=== PATIENT | male | born 1995 | race Caucasian/White ===

== ENCOUNTER 2022-06-01 11:09 | Emergency (ER) | payer BC, SELFPAY ==
[2022-06-01 11:20] VITALS: BP 160/93; PULSE 85; RESP 18; TEMP 36.7; O2SAT 100
--- NOTE | 2022-06-01 11:27 | ED.URI ---
HPI - URI/Sore Throat General Chief Complaint: Upper Respiratory Infection Stated Complaint: Sore Throat Time Seen by Provider: 06/01/22 11:27 History of Present Illness HPI Narrative: 26 y/o male presented for c/o sore throat, onset last night. Denies any associated symptoms. Denies sick contacts. Took cough drops for symptoms. Related Data Allergies Allergy/AdvReac Type Severity Reaction Status Date / Time nut - unspecified AdvReac Vomiting Verified 06/01/22 11:19 Review of Systems Review of Systems: CONSTITUTIONAL: Denies body aches, fever, chills, or sweats. EYES: Denies visual changes, redness, or discharge. ENT: Denies rhinorrhea, congestion, or otalgia. CARDIOVASCULAR: Denies chest pain, palpitations, or edema. RESPIRATORY: Denies dyspnea. GASTROINTESTINAL: Denies abdominal pain, nausea, vomiting, or diarrhea. SKIN: Denies rash, itching, or wounds. MUSCULOSKELETAL: Denies back pain, joint pain, or myalgia. NEUROLOGIC: Denies headache PMF Past Medical History Medical History (Updated 06/01/22 @ 11:38 by Whitney Phoenix, COMB[employer] MECH[employer]IC) No pertinent past medical history Exam Narrative: GENERAL: well-appearing, no acute distress. EYES: conjunctivae clear ENT: Mucous membranes moist. TMs pearly parrish with normal light reflex bilaterally; no tragal tenderness. Oropharynx erythematous. Tonsils not enlarged and without exudate. No drooling, no hoarseness, no trismus, uvula midline. No tripod positioning, hot potato voice, or soft palate swelling. NECK: Supple. No lymphadenopathy CHEST: Clear to auscultation, breath sounds equal. HEART: Regular rate and rhythm. No murmur heard. SKIN: Warm, dry, no rash. NEURO: Alert and oriented x3. Course Course Emergency Course: Patient is aware of diagnosis, understands and agrees to treatment plan. Anticipatory guidance given. Patient agrees to follow-up as directed and is aware of reasons to seek care at the emergency department. Portions of this record may have been created with voice recognition software Level of Care: Express Care Visit Vital Signs Vital signs: Vital Signs Temperature 98.1 F 06/01/22 11:20 Pulse Rate 85 06/01/22 11:20 Respiratory Rate 18 06/01/22 11:20 Blood Pressure 160/93 H 06/01/22 11:20 Pulse Oximetry 100 06/01/22 11:20 Oxygen Delivery Room Air 06/01/22 11:20 Temperature 98.1 F 06/01/22 11:20 Pulse Rate 85 06/01/22 11:20 Respiratory Rate 18 06/01/22 11:20 Blood Pressure 160/93 H 06/01/22 11:20 Pulse Oximetry 100 06/01/22 11:20 Oxygen Delivery Room Air 06/01/22 11:20 MDM - URI/Sore Throat MDM Narrative Medical decision making narrative: strep result reviewed with pt. Advise supportive treatments. Patient is appropriate for outpatient treatment and follow-up. Differential Diagnosis Differential diagnosis: Likely upper respiratory infection, viral infection and pharyngitis Lab Data Labs: Strep Screen Positive Group A Strep *(Reference Range: Negative)* Discharge Plan Discharge Clinical Impression: Strep pharyngitis Patient Disposition: Home, Self-Care Condition: Stable Instructions: Antibiotic Form, Strep Throat (ED) Additional Instructions: - Take the antibiotic as directed. Fever and sore throat typically resolve within one to three days. --- Most patients can return to work after 12 to 24 hours of antibiotic therapy, provided you are fever free and otherwise well. -Eat and drink things that are easy to swallow, like soft foods, cool liquids, tea with honey, or popsicles . -Salt water gargles and/or may use topical anesthetic ( Chloraseptic spray) or lozenges to relieve dryness or throat pain -Alternate Tylenol and ibuprofen as needed for pain and fever as directed. -Frequent hand washing or hand refrigeration supervisor is one of the best ways to prevent spread of infection. Throw away the toothbrush after 24hours of antibi
--- NOTE | 2022-06-01 12:31 | PC.NURSE ---
1158- Pt stated [facility] called and told him they do not accept his insurance. Rx called [facility].
== END 2022-06-01 11:58 | disposition home or self-care (01) ==
PROVIDERS: Emergency Provider Nurse Practitioner Family
DX: J02.0 Streptococcal pharyngitis (principal)
CPT/HCPCS: 87880; 99203; G0463

== ENCOUNTER 2022-09-04 10:34 | Emergency (ER) | payer BC, SELFPAY ==
--- NOTE | 2022-09-04 10:37 | ED.URI ---
HPI - URI/Sore Throat General Chief Complaint: Upper Respiratory Infection Stated Complaint: Sore throat Time Seen by Provider: 09/04/22 10:37 Source: patient Mode of arrival: ambulatory Limitations: no limitations History of Present Illness HPI Narrative: States he is a 27-year-old male patient presenting to the clinic today with complaints of a sore throat x1 day. He reports symptoms began yesterday afternoon. He denies any known fever or chills. Does have some nasal congestion with the sore throat. States that he had a strep infection back in May and it felt similar to this instance. MD elicited complaint: sore throat and nasal congestion Related Data Allergies Allergy/AdvReac Type Severity Reaction Status Date / Time nut - unspecified AdvReac Intermediate Vomiting Verified 09/04/22 10:48 Review of Systems Review of Systems: Pertinent positives per HPI. Patient denies any fever, chills, rash, headache, visual changes, dizziness, cough, shortness of breath, chest pain, palpitations, nausea, vomiting, diarrhea, constipation, abdominal pain, or any urinary issues. PMFSH Past Medical History Medical History No pertinent past medical history Comments At the time of my signature, I reviewed and agree with the nursing past medical, surgical, social, and family history. There is no relevant family history pertinent to the patient complaint. Exam Narrative: General: Well-developed, well nourished, in no apparent distress Head: Normocephalic, atraumatic Eyes: Pupils equally round and reactive to light bilaterally, EOM intact, sclera and conjunctive clear, no discharge, lids normal Ears: TMs intact and clear, ear canals clear, no drainage, grossly hearing normal. Nose: Nares patent, no discharge, no inflammation, no sinus tenderness. Mouth: Oral pharynx red with mild bilateral tonsillar enlargement without lesions or masses, good dentition, MMM. Neck: Supple, trachea midline, no enlargement of anterior or posterior cervical nodes, no thyroid masses or goiter palpable. Cardio: Regular rate and rhythm, s1 and s2 normal, no murmur appreciated. Resp: Clear to auscultation bilaterally, no rhonchi, rales, wheezing or rubs Course Course Emergency Course: Portions of this record may have been created with voice recognition software. Level of Care: Express Care Visit Vital Signs Vital signs: Vital signs reviewed MDM - URI/Sore Throat MDM Narrative Medical decision making narrative: At the time of visit patient is resting comfortably on the exam table. Strep screen was obtained and was negative. We will send strep for culture. I suspect patient has URI/pharyngitis. Supportive measures were discussed with the patient he voiced understanding discharge instructions and agrees to treatment plan. Differential Diagnosis Differential diagnosis: Likely upper respiratory infection, sinusitis, viral infection, bronchitis, influenza, pharyngitis and other (COVID) Discharge Plan Discharge Clinical Impression: Upper respiratory infection, Pharyngitis Patient Disposition: Home, Self-Care Condition: Stable Instructions: Antibiotic Form, Pharyngitis (ED), Upper Respiratory Infection (ED) Additional Instructions: Strep screen was negative in the clinic today. We will send for culture if this comes back positive we will contact him place you on antibiotics at that time. Increase fluids and stay well hydrated Tylenol/motrin for pain/fever Flonase and OTC antihistamines as directed Vicks vapor rub to open sinuses Sinus rinses for congestion Cepacol spray, cough drops, throat lozenges, warm tea with honey/lemon, gargle salt water to soothe throat BRAT diet for diarrhea Clear liquids x 24 hours then advance as tolerated for nausea/vomiting Go to the ED if you develop a worsening in your condition- high fever not controlled by Tylenol or
[2022-09-04 10:40] VITALS: BP 142/88; PULSE 83; RESP 18; TEMP 36.8; O2SAT 100
== END 2022-09-04 11:03 | disposition home or self-care (01) ==
PROVIDERS: Emergency Provider Nurse Practitioner Family
DX: J06.9 Acute upper respiratory infection, unspecified (principal); J02.9 Acute pharyngitis, unspecified
CPT/HCPCS: 87081; 87880; 99213; G0463

== ENCOUNTER 2023-07-19 10:14 | Emergency (ER) | payer BC, SELFPAY ==
[2023-07-19 10:42] VITALS: BP 156/100; PULSE 82; RESP 18; TEMP 36.3; O2SAT 100
[2023-07-19 10:44] VITALS: BP 143/100
--- NOTE | 2023-07-19 10:47 | ED.URI ---
HPI - URI/Sore Throat General Chief Complaint: Upper Respiratory Infection Stated Complaint: sore throat Time Seen by Provider: 07/19/23 10:41 Source: patient and RN notes reviewed Mode of arrival: ambulatory Limitations: no limitations History of Present Illness HPI Narrative: Patient presents today with sore throat since yesterday. Denies any additional symptoms to include congestion, rhinorrhea, cough, fever. Currently rates his pain 4/10 and has been using cough drops without relief. Denies any known sick contacts. Related Data Home Medications Medication Instructions Recorded Confirmed No Home Medications 07/19/23 07/19/23 Allergies Allergy/AdvReac Type Severity Reaction Status Date / Time nut - unspecified AdvReac Intermediate Vomiting Verified 07/19/23 10:27 Review of Systems Review of Systems: CONSTITUTIONAL: Denies body aches, fever, chills, or sweats. EYES: Denies visual changes, redness, or discharge. ENT: Denies rhinorrhea, congestion, or otalgia.+ sore throat CARDIOVASCULAR: Denies chest pain, palpitations, or edema. RESPIRATORY: Denies cough or dyspnea. GASTROINTESTINAL: Denies abdominal pain, nausea, vomiting, or diarrhea. GENITOURINARY: Denies dysuria or hematuria. SKIN: Denies rash, itching, or wounds. MUSCULOSKELETAL: Denies back pain, joint pain, or myalgia. NEUROLOGIC: Denies headache, numbness, tingling, or weakness. PSYCH: Denies depression or anxiety. [facility] Past Medical History Medical History No pertinent past medical history Comments At time of signature, I have reviewed and agree with nursing past medical, surgical, social and family history unless otherwise noted. Please see nursing chart for further information. There is no relevant family history pertinent to the presenting complaint Exam Narrative: GENERAL: Well-appearing, well-nourished, and in no acute distress. HEAD: Normocephalic, atraumatic. EYES: EOMI. No redness or drainage. Conjunctivae normal. ENT: Mucous membranes pink and moist. Nares clear. No rhinorrhea. TMs normal bilaterally. Uvula midline.+ throat is erythematous with mild edema. No exudate NECK: Normal AROM. Supple. No lymphadenopathy. CHEST: No respiratory distress. Clear to auscultation. HEART: Regular rate and rhythm. No murmur appreciated. EXTREMITIES: Normal range of motion. No edema. SKIN: Warm, dry, no rash. Capillary refill normal. Normal skin turgor. NEURO: No focal deficits. Alert and oriented x3. Gait steady. PSYCH: Normal affect. No signs of depression or anxiety. Course Course Level of Care: Express Care Visit Vital Signs Vital signs: Vital Signs Temperature 97.3 F L 07/19/23 10:42 Pulse Rate 82 07/19/23 10:42 Respiratory Rate 18 07/19/23 10:42 Blood Pressure 156/100 H 07/19/23 10:42 Pulse Oximetry 100 07/19/23 10:42 Oxygen Delivery Room Air 07/19/23 10:42 Temperature 97.3 F L 07/19/23 10:42 Pulse Rate 82 07/19/23 10:42 Respiratory Rate 18 07/19/23 10:42 Blood Pressure 143/100 H 07/19/23 10:44 Pulse Oximetry 100 07/19/23 10:42 Oxygen Delivery Room Air 07/19/23 10:42 Reviewed MDM - URI/Sore Throat MDM Narrative Medical decision making narrative: Rapid strep negative. Culture pending. Symptoms likely viral in etiology. Discussed pyet-dca-eysolet medication use and duration of illness. Anticipatory guidance given. Differential Diagnosis Differential diagnosis: Likely upper respiratory infection, viral infection, pharyngitis and other (Strep throat) Lab Data Attestation: I reviewed the patient's lab results. Labs: Strep Screen Presumptive Negative *(Reference Range: Negative)* Critical Care Time Critical Care Time Critical Care Time: No Discharge Plan Discharge Clinical Impression: Pharyngitis Qualifiers: Pharyngitis/tonsillitis etiol
== END 2023-07-19 10:53 | disposition home or self-care (01) ==
PROVIDERS: Emergency Provider Nurse Practitioner
DX: J02.9 Acute pharyngitis, unspecified (principal); Z86.16 Personal history of COVID-19
CPT/HCPCS: 87081; 87880; 99213; G0463

== ENCOUNTER 2023-10-21 08:40 | Emergency (ER) | payer BC, SELFPAY ==
[2023-10-21 08:53] VITALS: BP 163/83; PULSE 88; RESP 16; TEMP 36.5; O2SAT 100
--- NOTE | 2023-10-21 08:56 | ED.SKABFB ---
HPI - Skin/Abscess/Foreign Bdy General Chief complaint: Skin/Abscess/Foreign Body Stated complaint: wasp sting ( lt thumb) Time Seen by Provider: 10/21/23 08:58 Source: patient, RN notes reviewed and old records reviewed Mode of arrival: ambulatory Limitations: no limitations History of Present Illness HPI narrative: Patient presents with complaints of pain and swelling to left hand after being stung by a wasp 4 days ago. He reports that he was stung 1 time at the base of the thumb. He did wash the site immediately. Has been taking Tylenol since the time of the injury. Began taking Benadryl last night when the swelling was increased. He reports no relief. This morning he noted that swelling was extending up the left forearm, approximately fdc. He is right-hand dominant, does retain full range of motion to the left hand and wrist. No drainage from the site. No constitutional symptoms. Related Data Allergies Allergy/AdvReac Type Severity Reaction Status Date / Time nut - unspecified AdvReac Intermediate Vomiting Verified 10/21/23 08:45 Review of Systems Review of Systems: All systems reviewed & are unremarkable except as noted in HPI and below Constitutional: Constitutional: Reports no additional constitutional complaints ENT: Reports system reviewed and no additional complaints, except as documented Cardiovascular: Cardiovascular: Reports no additional cardiovascular complaints Respiratory: Respiratory: Reports no additional respiratory complaints Gastrointestinal: Gastrointestinal: Reports no additional gastrointestinal complaints Musculoskeletal: Musculoskeletal: Reports as per HPI Integumentary/Breasts: Skin/Breast: Reports as per HPI and Reports erythema PMFSH Past Medical History Medical History No pertinent past medical history Comments At the time of my signature, I reviewed and agree with the nursing past medical, surgical, social, and family history. There is no relevant family history pertinent to the patient complaint. Exam Const: General: cooperative, no acute distress, alert and awake Orientation/consciousness: oriented to person, oriented to place and oriented to time HENMT: Head: normal to inspection Resp: Effort & Inspection: normal respiratory effort and able to speak in complete sentences Auscultation: clear to auscultation bilaterally, no crackles, no rales, no rhonchi and no wheezes Cardio: Palpation: normal PMI Rate: regular rate Rhythm: regular rhythm Heart sounds: S1 normal heart sound present and S2 normal heart sound present Skin: Other: At the base of the left thumb there is a pinhole size opening, presumably from where he was stung by a wasp. There is erythema swelling, calor to the left hand extending midway up the forearm. There is no drainage. Cap refill less than 2 seconds. Full range of motion to all joints in affected area. No defined abscess Neuro: General: oriented to person, oriented to place and oriented to time Cranial nerves: Yes CN's II-XII intact bilaterally Psych: Appearance: grossly normal Thought process: Normal thought process present Insight: Good insight present (Psych) Judgement: Good judgement present (Psych) Course Course Level of Care: Express Care Visit Vital Signs Vital signs: Vital Signs Temperature 97.7 F 10/21/23 08:53 Pulse Rate 88 10/21/23 08:53 Respiratory Rate 16 10/21/23 08:53 Blood Pressure 163/83 H 10/21/23 08:53 Pulse Oximetry 100 10/21/23 08:53 Oxygen Delivery Room Air 10/21/23 08:53 Temperature 97.7 F 10/21/23 08:53 Pulse Rate 88 10/21/23 08:53 Respiratory Rate 16 10/21/23 08:53 Blood Pressure 163/83 H 10/21/23 08:53 Pulse Oximetry 100 10/21/23 08:53 Oxygen Delivery Room Air 10/21/23 08:53 Reviewed MDM - Skin/Abscess/Foreign Bdy MDM Narrative Medical decision making narrative: patient with increasing sue
== END 2023-10-21 09:33 | disposition home or self-care (01) ==
PROVIDERS: Emergency Provider Nurse Practitioner Family
DX: L03.114 Cellulitis of left upper limb (principal)
CPT/HCPCS: 99213; G0463

== ENCOUNTER 2024-06-04 16:44 | Emergency (ER) | payer BC, SELFPAY ==
[2024-06-04 16:53] VITALS: BP 161/97; PULSE 82; RESP 18; TEMP 36.3; O2SAT 100
[2024-06-04 18:04] LABS: EDCOVIDSCREEN Negative (Negative); EDINFLUASCREEN Negative (Negative); EDINFLUBSCREEN Negative (Negative)
--- NOTE | 2024-06-04 18:06 | ED_ITS ---
HPI - General Adult General Chief complaint: Upper Respiratory Infection Stated complaint: fever Source: patient Mode of arrival: ambulatory Limitations: no limitations History of Present Illness HPI narrative: Patient presents for evaluation of intermittent fever for the last 2 days. T- max at home 102.3. He has taken Tylenol and aspirin both of which have helped his symptoms. He denies any chills, nausea, vomiting, abdominal pain, constipation, diarrhea, urinary symptoms, urethral discharge, cough, shortness of breath, otalgia, sore throat, skin abnormalities or any other infectious symptoms whatsoever. One of his coworkers recently had a respiratory infection. Patient came in today at the suggestion of his . He states he feels perfectly fine other than the intermittent fever. No recent TB exposure. No recent vaccines received. No out of country travel. Related Data Allergies Allergy/AdvReac Type Severity Reaction Status Date / Time nut - unspecified AdvReac Intermediate Vomiting Verified 06/04/24 16:56 Review of Systems Review of Systems: CONSTITUTIONAL: Reports intermittent fever. Denies chills or sweats. EYES: Denies visual changes, redness, or discharge. ENT: Denies rhinorrhea, congestion, sore throat, or otalgia. CARDIOVASCULAR: Denies chest pain, palpitations, or edema. RESPIRATORY: Denies cough or dyspnea. GASTROINTESTINAL: Denies abdominal pain, nausea, vomiting, or diarrhea. GENITOURINARY: Denies dysuria or hematuria. SKIN: Denies rash or itching. MUSCULOSKELETAL: Denies back pain, joint pain, or myalgia. NEUROLOGIC: Denies headache, numbness, dizziness, or weakness. PSYCHIATRIC: Denies anxiety or depression. [facility] Past Medical History Medical History Hypertension Surgical History Surgical History No pertinent past surgical history Family History Family History Mother Family history non-contributory Social History Social History Substance use: never Living arrangements: with family Gender identity (if verbalized by the patient): Male Sexual Orientation (if Verbalized by the Patient): Straight or Heterosexual Spiritual care concerns: No Exam Narrative: GENERAL: Well-appearing, well-nourished, and in no acute distress. HEAD: Normocephalic, atraumatic. EYES: PERRLA and EOMI. ENT: Nares clear, no rhinorrhea or epistaxis. Mucous membranes moist. Oropharynx without tonsillar hypertrophy exudate or other lesions. Bilateral TMs pearly parrish nonbulging NECK: Supple. No adenopathy or masses. No carotid bruits or JVD CHEST: Clear to auscultation. No respiratory distress. No wheezes rales or rhonchi HEART: Regular rate and rhythm. No murmur heard. Normal peripheral pulses. ABDOMEN: Soft, nontender, nondistended, normal active bowel sounds. EXTREMITIES: Normal range of motion. No edema. SKIN: Warm, dry, no rash. NEURO: No focal deficits. Alert and oriented x3. PSYCH: Normal mood and affect. Course Course Emergency Course: this is a 28-year-old male who presented for evaluation of fever. I cannot identify any infectious source on his exam. I do not appreciate any wounds. He has no sore throat, otalgia, cough, shortness of breath, abdominal pain, nausea, vomiting, diarrhea, urethral discharge, or urinary symptoms. He had a negative COVID and flu test here. I did offer to check him for strep, and to also have a chest x-ray and urinalysis performed. He declined. I think this is reasonable. He has no lymphadenopathy and exam. He seems very reasonable and has good judgment from my interaction with him today. In the event that he has recurrent or worsening symptoms he will go to the emergency department. Patient in agreement with plan of care. Level of Care: Express Care Visit Vital Signs Vital signs: Vital Signs Temperature 36.3 C L 06/04/24 16:53 Pulse Rate 82 06/04/24 16:53 Respiratory Rate 18 06/04/24 16:53 Blood Pressure 161/97 H 06/04/24 16:53 Pulse Oximetry 100 06/04/24 16:53 Temperature 36.3 C L 06/04/24 16:53 Pulse Rate 82 06/04/24 16:53 Respiratory Rate 18 06/04/24 16:53 Blood Pressure 161/97 H 06/04/24 16:53 Pulse Oximetry 100 06/04/24 16:53 Medical Decision Making Vital Signs Vital Signs: Vital Signs Temperature 36.3 C L 06/04/24 16:53 Pulse Rate 82 06/04/24 16:53 Respiratory Rate 18 06/04/24 16:53 Blood Pressure 161/97 H 06/04/24 16:53 Pulse Oximetry 100 06/04/24 16:53 Temperature 36.3 C L 06/04/24 16:53 Pulse Rate 82 06/04/24 16:53 Respiratory Rate 18 06/04/24 16:53 Blood Pressure 161/97 H 06/04/24 16:53 Pulse Oximetry 100 06/04/24 16:53 Lab Data Labs: Lab Results 06/04/24 Range/Units 18:03 POC Influenza A Ag Negative (Negative) POC Influenza B Ag Negative (Negative) POC SARS CoV-2 Ag Negative (Negative) Discharge Plan Discharge Clinical Impression: Fever Patient Disposition: Home, Self-Care Condition: Stable Instructions: Antibiotic Form, Fever in Adults (ED) Additional Instructions: If you have persistent or worsening symptoms, please return or go to the ER You may alternate tylenol and ibuprofen for fever Make sure to stay well hydrated. Patient Language: Jordanian Prescriptions: No Action sulfamethoxazole-trimethoprim [Bactrim DS] 800-160 mg tablet 1 tablet PO Q12H Qty: 20 0RF prednisone 50 mg tablet 50 mg PO DAILY Qty: 5 0RF Follow-up/Referrals: Abhishek Kinsey MD [Physician] - Time of Disposition: 18:03
== END 2024-06-04 18:06 | disposition home or self-care (01) ==
PROVIDERS: Emergency Provider Nurse Practitioner
DX: R50.9 Fever, unspecified (principal); Z20.822 Contact with and (suspected) exposure to COVID-19; I10 Essential (primary) hypertension
CPT/HCPCS: 87426; 87804; 99212; G0463

== ENCOUNTER 2025-01-07 09:11 | Emergency (ER) | payer BC, SELFPAY ==
--- NOTE | 2025-01-07 09:13 | ED.SKABFB ---
HPI - Skin/Abscess/Foreign Bdy General Chief complaint: Skin/Abscess/Foreign Body Stated complaint: Cyst on Tailbone Time Seen by Provider: 01/07/25 09:13 Source: patient Mode of arrival: ambulatory Limitations: no limitations History of Present Illness HPI narrative: Bridget is 29-year-old male patient presenting to the clinic today with complaints of a cyst on his tailbone. He reports he had what started to feel like a pimple to his tailbone area that started a few days ago and has gradually gotten worse. Has taken Tylenol for his symptoms. Currently rates his pain at 3/10. Denies any fevers, chills, body aches. History of having cyst in this area in the past and it drained on its own. Related Data Allergies Allergy/AdvReac Type Severity Reaction Status Date / Time tree nut AdvReac Mild Nausea and Verified 01/07/25 09:50 Vomiting Review of Systems Review of Systems: Pertinent positives per HPI. Patient denies any fever, chills, rash, headache, visual changes, dizziness, cough, runny nose, sore throat, shortness of breath, chest pain, palpitations, nausea, vomiting, diarrhea, constipation, abdominal pain, or any urinary issues. PMFSH Past Medical History Medical History Hypertension Surgical History Surgical History No pertinent past surgical history Family History Family History Mother Family history non-contributory Social History Social History Smoking status: Never smoker Substance use: never Living arrangements: with family Gender identity (if verbalized by the patient): Male Sexual Orientation (if Verbalized by the Patient): Straight or Heterosexual Spiritual care concerns: No Comments At the time of my signature, I reviewed and agree with the nursing past medical, surgical, social, and family history. There is no relevant family history pertinent to the patient complaint. Exam Narrative: General: Well-developed, well nourished, in no apparent distress Head: Normocephalic, atraumatic. Cardio: Regular rate and rhythm, s1 and s2 normal, no murmur appreciated. Resp: Clear to auscultation bilaterally, no rhonchi, rales, wheezing or rubs. Integumentary: [place], warm, and dry, 3 x 3cm right gluteal cleft abscess with pustule head,induration, mild erythema, and mild fluctuation. No drainage. Course Course Emergency Course: Portions of this record may have been created with voice recognition software. Level of Care: Express Care Visit Vital Signs Vital signs: Vital Signs Temperature 36.1 C L 01/07/25 09:20 Pulse Rate 80 01/07/25 09:20 Respiratory Rate 18 01/07/25 09:20 Blood Pressure 150/90 H 01/07/25 09:20 Pulse Oximetry 100 01/07/25 09:20 Oxygen Delivery Room Air 01/07/25 09:20 Temperature 36.1 C L 01/07/25 09:20 Pulse Rate 80 01/07/25 09:20 Respiratory Rate 18 01/07/25 09:20 Blood Pressure 150/90 H 01/07/25 09:20 Pulse Oximetry 100 01/07/25 09:20 Oxygen Delivery Room Air 01/07/25 09:20 Vital signs reviewed Procedures Abscess I/D Right gluteal cleft abscess: Date of Incision: 01/07/25 Side (if applicable): right Sedation/analgesia: none Local Anesthetic: lidocaine 1% and with epi Amount of anesthesia used (mL): 1.5 Technique: incised with #11 blade Amount of fluid expressed (mL): 2 Irrigation: No Packing used?: iodoform I&D Results: Pus and Blood Complications: other (none) Abcess I&D Additional Comments: Verbal consent obtained for incision and drainage. Risk and benefits explained and patient voiced understanding. Area was cleansed with betadine. Area was prepped and draped using sterile technique. 27 gauge needle was then used to instill (1.5) ml of lidocaine with epi into the wound edges. Patient tolerated well and anesthesia was appropriate. An 11 blade scalpel was then used to make a 0.5cm incision over the abscess. White/brown bloody exudate expressed from cavity. Wound culture obtained and sent to lab. Patient tolerated procedure well. MDM - Skin/Abscess/Foreign Bdy MDM Narrative Medical decision making narrative: At the time of visit patient is resting comfortably on the exam table. Patient appears to be nontoxic. Complaints of a cyst on his tailbone. He reports he had what started to feel like a pimple to his tailbone area that started a few days ago and has gradually gotten worse. Has taken Tylenol for his symptoms. Currently rates his pain at 3/10. Denies any fevers, chills, body aches. History of having cyst in this area in the past and it drained on its own. On exam patient has 3 x 3cm right gluteal cleft abscess with pustule head,induration, mild erythema, and mild fluctuation. No drainage. Offered incision and drainage in patient agrees to procedure. Procedures: Incision and drainage of the right gluteal cleft abscess was performed in the clinic today. Risk and benefits were reviewed with the patient and verbal consent was obtained. Area was cleansed with Betadine and 1.5 mL of lidocaine with epi was instilled into the surrounding tissue. Eleven blade was used to incise the abscess. Approximately 2 mL of purulent discharge was expressed and wound culture was obtained and sent to the lab. Quarter-inch iodoform packing was inserted into the abscess bed. Sterile dressing was applied. Plan: Patient has a right gluteal cleft abscess. Wound culture was obtained and sent to lab. Quarter-inch iodoform packing was inserted into the abscess bed. Wound care was discussed with the patient. Follow-up in 2-3 days for packing removal and wound check. Prescription for Augmentin was sent to the pharmacy. Supportive measures were discussed with the patient and they voiced understanding discharge instructions and agrees to treatment plan. Return precautions reviewed Differential Diagnosis Differential diagnosis: Likely abscess of skin or subcutaneous tissue, cellulitis and other (Pilonidal cyst, gluteal cleft abscess) Discharge Plan Discharge Clinical Impression: Abscess of gluteal cleft Patient Disposition: Home Condition: Stable Instructions: Antibiotic Form, Abscess (ED), Abscess Incision and Drainage (DC) Additional Instructions: Incision and drainage performed in the clinic today Wound culture obtained and sent to the lab. Take Augmentin as prescribed Keep area clean and dry May shower daily- wash area with soap and water and pat dry Follow-up with your PCP or return to the clinic for a wound check/packing removal in 2-3 days Watch for signs and symptoms of worsening infection-fever, increase in redness, increase in swelling, increase in pain, increase in drainage, or streaking. Go to the emergency room for any worsening signs of infection, confusion, weakness, lethargy, dehydration, or other concerning symptoms. Patient Language: Romanian Prescriptions: New amoxicillin-pot clavulanate 875-125 mg tablet 1 tablet PO Q12H 7 Days Qty: 14 0RF No Action amlodipine-benazepril 5-20 mg capsule 1 cap PO DAILY Qty: 90 0RF Follow-up/Referrals: Marichuy Hong APRN [Primary Care Provider, Internal Medicine] Time of Disposition: 09:45 Quality NIHSS Nursing Documentation ED NIHSS nursing documentation: reviewed/agree
[2025-01-07 09:20] VITALS: BP 150/90; PULSE 80; RESP 18; TEMP 36.1; O2SAT 100
[2025-01-07] MEDS: LIDO 1%/EPINEPHRINE 1:100,000 20 ML VIAL 10 ML INFILTRATE (09:29)
== END 2025-01-07 09:48 | disposition home or self-care (01) ==
PROVIDERS: Emergency Provider Nurse Practitioner Family; PCP Nurse Practitioner Family
DX: L05.01 Pilonidal cyst with abscess (principal); I10 Essential (primary) hypertension
CPT/HCPCS: 10080; 87070; 87075; 87205; 99213; G0463; J2004

== ENCOUNTER 2025-01-09 13:14 | Emergency (ER) | payer BC, SELFPAY ==
--- NOTE | 2025-01-09 13:16 | ED_ITS ---
HPI - Wound/Laceration General Chief Complaint: Skin/Abscess/Foreign Body Stated Complaint: Abscess Time Seen by Provider: 01/09/25 13:15 Source: patient Mode of arrival: ambulatory Limitations: no limitations History of Present Illness HPI narrative: Bridget is a 29-year-old male patient presenting to the clinic today with complaints of a recheck of his right gluteal abscess. Patient was seen 2 days ago and had incision drainage of the right gluteal abscess. Was placed on Augmentin. Patient continues taking the medication. States the packing fell out when he was changing dressing/showering. Feels as though the abscess/symptoms have improved. Denies any fevers, chills, body aches. States that the area is still draining. Related Data Allergies Allergy/AdvReac Type Severity Reaction Status Date / Time tree nut AdvReac Mild Nausea and Verified 01/09/25 13:20 Vomiting Review of Systems 2 Review of Systems: Pertinent positives per HPI. Patient denies any fever, chills, rash, headache, visual changes, dizziness, cough, runny nose, sore throat, shortness of breath, chest pain, palpitations, nausea, vomiting, diarrhea, constipation, abdominal pain, or any urinary issues. PMFSH Past Medical History Medical History Hypertension Surgical History Surgical History No pertinent past surgical history Family History Family History Mother Family history non-contributory Social History Social History Smoking status: Never smoker Substance use: never Living arrangements: with family Gender identity (if verbalized by the patient): Male Sexual Orientation (if Verbalized by the Patient): Straight or Heterosexual Spiritual care concerns: No Comments At the time of my signature, I reviewed and agree with the nursing past medical, surgical, social, and family history. There is no relevant family history pertinent to the patient complaint. Exam Narrative: General: Well-developed, well nourished, in no apparent distress Head: Normocephalic, atraumatic. Cardio: Regular rate and rhythm, s1 and s2 normal, no murmur appreciated. Resp: Clear to auscultation bilaterally, no rhonchi, rales, wheezing or rubs. Integumentary: [place], warm, and dry, resolving abscess to right glute-induration has resolved and there is still some yellowish clear discharge draining from the wound. No erythema or redness visualized. Course Course Emergency Course: Portions of this record may have been created with voice recognition software. Level of Care: Express Care Visit Vital Signs Vital signs: Vital Signs Temperature 36.5 C 01/09/25 13:18 Pulse Rate 106 H 01/09/25 13:18 Respiratory Rate 18 01/09/25 13:18 Blood Pressure 151/94 H 01/09/25 13:18 Pulse Oximetry 100 01/09/25 13:18 Oxygen Delivery Room Air 01/09/25 13:18 Temperature 36.5 C 01/09/25 13:18 Pulse Rate 106 H 01/09/25 13:18 Respiratory Rate 18 01/09/25 13:18 Blood Pressure 151/94 H 01/09/25 13:18 Pulse Oximetry 100 01/09/25 13:18 Oxygen Delivery Room Air 01/09/25 13:18 Vital signs reviewed MDM - Wound/Laceration MDM Narrative Medical decision making narrative: At the time of visit patient is resting comfortably on the exam table. Patient appears to be nontoxic. Complaints of a recheck of his right gluteal abscess. Patient was seen 2 days ago and had incision drainage of the right gluteal abscess. Was placed on Augmentin. Patient continues taking the medication. S tates the packing fell out when he was changing dressing/showering. Feels as though the abscess/symptoms have improved. Denies any fevers, chills, body aches. States that the area is still draining. Plan: Patient has resolving right gluteal abscess. Still awaiting culture results. Continue Augmentin as prescribed and follow-up with PCP in 3-5 days if symptoms persist or go the emergency room if his symptoms worsen. Supportive measures were discussed with the patient and they voiced understanding discharge instructions and agrees to treatment plan. Return precautions reviewed Differential Diagnosis Differential diagnosis: Likely laceration, abscess, abrasion and avulsion of skin Discharge Plan Discharge Clinical Impression: Abscess, gluteal cleft Patient Disposition: Home Condition: Stable Instructions: Antibiotic Form, Abscess (ED), Abscess Follow-up (ED) Additional Instructions: Abscess is improving. Continue antibiotics as prescribed Wash daily with soap and water pat dry. Keep area covered if draining Watch for signs and symptoms of worsening infection-redness, swelling, increase in pain, increase in swelling, or fevers. Follow-up with your PCP in 3-5 days if symptoms persist or sooner if they worsen Patient Language: Wallisian Prescriptions: No Action amoxicillin-pot clavulanate 875-125 mg tablet 1 tablet PO Q12H 7 Days Qty: 14 0RF amlodipine-benazepril 5-20 mg capsule 1 cap PO DAILY Qty: 90 0RF Follow-up/Referrals: Marichuy Hong APRN [Primary Care Provider, Internal Medicine] Time of Disposition: 13:27 Quality NIHSS Nursing Documentation ED NIHSS nursing documentation: reviewed/agree
[2025-01-09 13:18] VITALS: BP 151/94; PULSE 106; RESP 18; TEMP 36.5; O2SAT 100
== END 2025-01-09 13:32 | disposition home or self-care (01) ==
PROVIDERS: Emergency Provider Nurse Practitioner Family; PCP Nurse Practitioner Family
DX: L05.01 Pilonidal cyst with abscess (principal); I10 Essential (primary) hypertension
CPT/HCPCS: 99211; G0463

== ENCOUNTER 2025-01-11 09:23 | Emergency (ER) | payer BC, SELFPAY ==
[2025-01-11 09:30] VITALS: BP 149/84; PULSE 82; RESP 16; TEMP 36.6; O2SAT 99
--- NOTE | 2025-01-11 09:30 | ED.SKABFB ---
HPI - Skin/Abscess/Foreign Bdy General Chief complaint: Skin/Abscess/Foreign Body Stated complaint: red line coming out of bump Time Seen by Provider: 01/11/25 09:30 Source: patient, RN notes reviewed and old records reviewed Mode of arrival: ambulatory Limitations: no limitations History of Present Illness HPI narrative: 29-year-old male returns to the [facility] to have an abscess checked. Was seen on January 07, 4 days ago, drained. Was checked on March 11, 2 days ago. Has an appointment with primary care tomorrow. Microbiology not fully back yet. Related Data Allergies Allergy/AdvReac Type Severity Reaction Status Date / Time tree nut AdvReac Mild Nausea and Verified 01/11/25 09:27 Vomiting Review of Systems Review of Systems: All systems reviewed & are unremarkable except as noted in HPI and below Constitutional: Constitutional: Reports no additional constitutional complaints Musculoskeletal: Musculoskeletal: Reports no additional musculoskeletal complaints Integumentary/Breasts: Skin/Breast: Reports as per HPI PMFSH Past Medical History Medical History Hypertension Surgical History Surgical History No pertinent past surgical history Family History Family History Mother Family history non-contributory Social History Social History Smoking status: Never smoker Substance use: never Living arrangements: with family Gender identity (if verbalized by the patient): Male Sexual Orientation (if Verbalized by the Patient): Straight or Heterosexual Spiritual care concerns: No Comments At the time of my signature, I reviewed and agree with the nursing past medical, surgical, social, and family history. There is no relevant family history pertinent to the patient complaint. Exam Const: General: cooperative, healthy appearing, comfortable, no acute distress, well developed, alert and well nourished Nutritional Appearance: well nourished Orientation/consciousness: patient oriented x3 Limitations: no limitations HENMT: Head: normal to inspection Eyes: General: appearance normal, both eyes and all related structures Alignment and Position: alignment normal Neck: Neck: normal visual inspection, full ROM, no lymphadenopathy and no meningeal signs Chest: Chest palpation & inspection: normal inspection of the chest Resp: Effort & Inspection: normal respiratory effort and able to speak in complete sentences Cardio: Rate: regular rate Skin: General skin exam: normal color and no rashes or lesions noted Full body images:  1. Well-healing flat without erythema wound. Neuro: General: patient oriented x3, gait normal, moves all extremities and no meningeal signs Cognition (Neuro): normal cognition Speech: normal speech Gait exam (Neuro): Normal gait present Extrem: General: normal to inspection, full ROM, capillary refill normal and normal gait Psych: Appearance: grossly normal and well kempt Mental Status: mental status grossly normal Speech and movement: Normal speech and movement present and Clear speech present Affect: normal affect Attitude: cooperative Course Course Level of Care: Express Care Visit Vital Signs Vital signs: Vital Signs Temperature 97.8 F 01/11/25 09:30 Pulse Rate 82 01/11/25 09:30 Respiratory Rate 16 01/11/25 09:30 Blood Pressure 149/84 H 01/11/25 09:30 Pulse Oximetry 99 01/11/25 09:30 Oxygen Delivery Room Air 01/11/25 09:30 Temperature 97.8 F 01/11/25 09:30 Pulse Rate 82 01/11/25 09:30 Respiratory Rate 16 01/11/25 09:30 Blood Pressure 149/84 H 01/11/25 09:30 Pulse Oximetry 99 01/11/25 09:30 Oxygen Delivery Room Air 01/11/25 09:30 Reviewed MDM - Skin/Abscess/Foreign Bdy MDM Narrative Medical decision making narrative: Patient sitting in room patient is nontoxic, vitals stable. Patient presents requesting to have abscess checked. No erythema, no swelling, no pain. Area looks to be healing without drainage Encourage patient to continue with antibiotics and follow-up with primary care provider Discharge instructions reviewed with patient, as well as provided in writing per nursing staff. The instructions also include specific and strict return/GO TO THE ER as well as f/u information. All questions have been answered, and the patient deny any further questions with discharge and discharge plan. Some parts of this dictation were generated by voice recognition software and may contain typographical and/or grammatical inaccuracies. Differential Diagnosis Differential diagnosis: Likely abscess of skin or subcutaneous tissue and cellulitis Critical Care Time Critical Care Time Critical Care Time: No Discharge Plan Discharge Clinical Impression: Visit for wound check, Hx of drainage of abscess Patient Disposition: Home Condition: Stable Instructions: Antibiotic Form, Abscess Follow-up (ED) Additional Instructions: Continue taking antibiotic as prescribed Keep area clean and dry Follow-up with primary care For new or worsening symptoms go directly to the emergency room Patient Language: Scottish Prescriptions: No Action amoxicillin-pot clavulanate 875-125 mg tablet 1 tablet PO Q12H 7 Days Qty: 14 0RF amlodipine-benazepril 5-20 mg capsule 1 cap PO DAILY Qty: 90 0RF Follow-up/Referrals: Marichuy Hong APRN [Primary Care Provider, Internal Medicine] - 1 Week Time of Disposition: 09:50
== END 2025-01-11 09:53 | disposition home or self-care (01) ==
PROVIDERS: Emergency Provider Nurse Practitioner; PCP Nurse Practitioner Family
DX: Z48.01 Encounter for change or removal of surgical wound dressing (principal); I10 Essential (primary) hypertension
CPT/HCPCS: 99211; G0463